=== PATIENT | female | born 1960 | race Caucasian/White ===

== ENCOUNTER 2025-04-17 08:50 | Outpatient (CLI) | payer OTHER | END 2025-04-17 08:51 | disposition home or self-care (01) | LOC: BICMAMMO 08:50 | PROVIDERS: ATTEND Family Medicine | DX: Z12.31 Encounter for screening mammogram for malignant neoplasm of breast (principal); Z80.3 Family history of malignant neoplasm of breast | CPT/HCPCS: 77063; 77067 ==

== ENCOUNTER 2025-08-09 00:32 | Observation (INO) | payer OTHER, MEDICAID ==
[2025-08-09 00:54] VITALS: BMI 38.9
[2025-08-09] MEDS ORDERED: Ondansetron PF 4 MG/2 ML Vial IVP PRN (00:54)
[2025-08-09] MEDS ORDERED: Calcium Carbonate 500 MG ChewTAB PO PRN (00:54)
[2025-08-09] MEDS ORDERED: Electrolyte Replacement Protocol 1 EACH FS SCH (01:00)
[2025-08-09] MEDS ORDERED: PHOS-NAK 1 PKT PACK PO PRN (01:15)
[2025-08-09] MEDS ORDERED: Potassium Chloride 20 MEQ in Premix 1 BAG IVPB PRN (01:15)
[2025-08-09] MEDS: Acetaminophen 325 MG TAB PO PRN (04:00)
[2025-08-09 04:37] LABS: #Basophils Less than 0.03 10x3/uL (0.0-0.2); #Eosinophils 0.11 10x3/uL (0.0-0.7); #Monocytes 0.92 10x3/uL (0.11-0.59); #Neutrophils 11.47 10x3/uL (1.40-6.50); %Basophils 0.1 % (0.0-1.0); %Eosinophils 0.7 % (0.0-10.0); %Lymphocytes 16.1 % (21.0-51.0); %Monocytes 6.1 % (0.0-10.0); %Neutrophils 76.7 % (42.0-75.0); Hematocrit 42.7 % (36.0-47.0); Hemoglobin 13.7 g/dL (12.0-16.0); Mean Corpuscular Hemoglobin 28.7 pg (27.0-31.0); Mean Corpuscular Volume 89.5 fL (78.0-98.0); Platelet Count 290 10x3/uL (130-400); Red Blood Cell (RBC) Count 4.77 mill/uL (4.20-5.40); White Blood Cell (WBC) Count 14.98 10x3/uL (4.8-10.8)
[2025-08-09 05:02] LABS: ALT (SGPT) 38 U/L (Less than 34); AST (SGOT) 36 U/L (11-34); Albumin 3.9 g/dL (3.1-4.5); Alkaline Phosphatase 65 U/L (40-110); Anion Gap 15 mmol/L (10-20); BUN (Urea Nitrogen) 25 mg/dL (9.8-20.1); Bilirubin, Total 0.4 mg/dL (0.3-1.2); Calc. Creatinine Clearance 145 mL/min (70-130); Calcium 8.7 mg/dL (7.8-10.44); Carbon Dioxide 22 mmol/L (23-31); Chloride 103 mmol/L (98-107); Globulin 3.2 g/dL (2.4-3.5); Glucose 234 mg/dL (80-115); Potassium 4.4 mmol/L (3.5-5.1); Sodium 136 mmol/L (136-145)
[2025-08-09] MEDS: Methocarbamol 500 MG TAB PO SCH (09:07)
[2025-08-09] MEDS: Aspirin 81 mg Enteric Coated Tablet PO SCH (09:07)
[2025-08-09] MEDS: metFORMIN 500 MG TAB PO SCH (09:07)
[2025-08-09] MEDS: Spironolactone 25 MG TAB PO SCH (09:07)
[2025-08-09] MEDS: Metoprolol Succinate XL 100 MG ER.TAB PO SCH (09:07)
[2025-08-09] MEDS: Calcium Carbonate 600 MG + Vit D TAB PO SCH (09:07)
[2025-08-09] MEDS: Magnesium Oxide 400 MG TAB PO SCH (09:07)
[2025-08-09] MEDS: Furosemide 40 MG TAB PO SCH (09:07)
[2025-08-09] MEDS: Digoxin 0.25 MG TAB PO SCH (09:07)
[2025-08-09] MEDS: HYDROcodone/Acetaminophen 5/325 mg Tablet PO PRN (11:44)
[2025-08-09] MEDS: Ketorolac Tromethamine 30 MG (1 mL) VIAL IVP PRN (17:05)
[2025-08-09] MEDS ORDERED: Glucagon 1 MG/ML KIT IM PRN (19:58)
[2025-08-09] MEDS ORDERED: Dextrose 50% Abboject 50 ML SYRINGE SLOW IVP PRN (19:58)
[2025-08-09] MEDS: Methocarbamol 500 MG TAB PO PRN (21:33)
[2025-08-10 06:06] LABS: Magnesium 1.2 mg/dL (1.6-2.6)
[2025-08-10] MEDS: Magnesium Sulfate In Water 4 GM in Premix 1 BAG IVPB PRN (06:30)
[2025-08-10 07:58] VITALS: TEMP 98.2
[2025-08-10 16:57] VITALS: BP 145/92
== END 2025-08-10 19:33 | disposition home or self-care (01) ==
LOC: INTOOBSV 00:32 → OBS 00:32
PROVIDERS: ADMIT Student in an Organized Health Care Education/Training Program; ATTEND Internal Medicine
DX: R07.89 Other chest pain (principal); I48.20 Chronic atrial fibrillation, unspecified; I11.0 Hypertensive heart disease with heart failure; I50.9 Heart failure, unspecified; E11.9 Type 2 diabetes mellitus without complications; E78.5 Hyperlipidemia, unspecified; W19.XXXA Unspecified fall, initial encounter; Z87.891 Personal history of nicotine dependence; Z79.84 Long term (current) use of oral hypoglycemic drugs; Z79.899 Other long term (current) drug therapy; Z90.11 Acquired absence of right breast and nipple; Z98.890 Other specified postprocedural states; Z79.01 Long term (current) use of anticoagulants; Z79.82 Long term (current) use of aspirin
CPT/HCPCS: 80053; 82962 ×2; 83735; 84100; 84484 ×2; 85025; 94760; J1815; J1885 ×2; J3475; 36415; 36416; 96374; 96375; 96376; G0378